=== PATIENT | male | born 1990 | race Caucasian/White ===

== ENCOUNTER → 2019-03-10 | Outpatient (CLI) | payer OTHER ==
--- NOTE | 2019-03-10 11:40 | XR ---
"EXAMINATION TYPE: XR elbow limited RT DATE OF EXAM: 03/10/2019 COMPARISON: NONE HISTORY: Pain FINDINGS: Two views of the elbow demonstrate displaced intra-articular fracture of the radial head with some de gree of depression. A pathologic joint effusion is noted. IMPRESSION: 1. There is a depressed and displaced intra-articular fracture of the radial head with pathologic kaveh nt effusion. A Yellow level critical message alert has been initiated for Meghan Dolan MD via the [employer] | Critical Results System on 03/10/2019 11:38 AM. This message alert has been sent to Meghan osborne MD via the preferences provided by the clinician for the receipt of Radiology Critical Findings. [facility] ID [id number]."
== END | disposition home or self-care (01) ==
LOC: RADMRIMAIN 11:06
PROVIDERS: ATTEND Internal Medicine
DX: S52.121A Displaced fracture of head of right radius, initial encounter for closed fracture (principal)

== ENCOUNTER 2021-01-23 19:00 | Emergency (ER) | payer OTHER ==
[2021-01-23 19:51] VITALS: BP 131/79; PULSE 82; RESP 18; TEMP 98.4
--- NOTE | 2021-01-23 20:22 | ED ---
Recheck HPI - General Chief Complaint: Recheck/Abnormal Lab/Rx Stated Complaint: Covid exposure, wants test Time Seen by Provider: 01/23/21 20:21 Source: patient, RN notes reviewed Mode of arrival: ambulatory Limitations: no limitations - History of Present Illness Initial Comments: This a 30-year-old male presents emergency Department chief complaint of wanting covid testing. Patient states that he was recently exposed was asymptomatic denies shortness of breath, of cough congestion bodyaches. Patient denies any other complaints. Patient is normal drug ALLERGIES. - Related Data Allergies Allergy/AdvReac Type Severity Reaction Status Date / Time No Known Allergies Allergy Verified 01/23/21 19:48 Review of Systems ROS Statement: Those systems with pertinent positive or pertinent negative responses have been documented in the HPI. ROS Other: All systems not noted in ROS Statement are negative. Past Medical History Past Medical History: No Reported History History of Any Multi-Drug Resistant Organisms: None Reported Past Surgical History: No Surgical Hx Reported Past Psychological History: No Psychological Hx Reported Smoking Status: Current every day smoker Past Alcohol Use History: Occasional Past Drug Use History: None Reported General Exam Limitations: no limitations General appearance: alert, in no apparent distress Head exam: Present: atraumatic, normocephalic, normal inspection Eye exam: Present: normal appearance, PERRL, EOMI. Absent: scleral icterus, conjunctival injection, periorbital swelling ENT exam: Present: normal exam Neck exam: Present: normal inspection, full ROM. Absent: tenderness, meningismus, lymphadenopathy Respiratory exam: Present: normal lung sounds bilaterally. Absent: respiratory distress, wheezes, rales, rhonchi, stridor Cardiovascular Exam: Present: regular rate, normal rhythm, normal heart sounds. Absent: systolic murmur, diastolic murmur, rubs, gallop, clicks Course Vital Signs 01/23/21 19:49 Temperature 98.4 F Pulse Rate 82 Respiratory 18 Rate Blood Pressure 131/79 O2 Sat by Pulse 97 Oximetry Medical Decision Making - Medical Decision Making Patient test is negative. Patient will be discharged in stable condition. - Lab Data Lab Results 01/23/21 Range/Units 19:52 Coronavirus (PCR) Not Detected (Not Detectd) Disposition Clinical Impression: Encounter for laboratory testing for COVID-19 virus Disposition: HOME SELF-CARE Condition: Stable Instructions (If sedation given, give patient instructions): Coronavirus Disease 2019 (COVID-19) Additional Instructions: Please return to the Emergency Department if symptoms worsen or any other concerns. Is patient prescribed a controlled substance at d/c from ED?: No Referrals: Meghan Dolan MD [Primary Care Provider] - 1-2 days Time of Disposition: 20:22
== END 2021-01-23 20:43 | disposition home or self-care (01) ==
LOC: EC 19:00
DX: Z11.52 Encounter for screening for COVID-19 (principal)
CPT/HCPCS: 87635; 99283

== ENCOUNTER 2021-02-08 22:40 | Emergency (ER) | payer OTHER ==
[2021-02-08 22:46] VITALS: RESP 18; TEMP 98.5
--- NOTE | 2021-02-09 00:10 | ED ---
Headache HPI - General Chief Complaint: Headache Stated Complaint: Headache Time Seen by Provider: 02/08/21 22:52 Mode of arrival: ambulatory Limitations: no limitations - History of Present Illness Initial Comments: 30-year-old male presents to emergency department with a chief complaint of headache. Patient does not have history of headaches but states this one has been ongoing for the past 5 days. Patient states the headache is located in the left parietal region and is localized without radiation. States the pain comes on and it is throbbing for about 2 seconds and then resolves. States this occurs about every half hour with no improvement. States he called his primary care physician who prescribed him Imitrex with improvement in symptoms. States he also taken Shelby and Motrin with no improvement in symptoms. Denies any photophobia, visual changes, nausea or vomiting. Denies any one-sided weakness or paresthesias. Denies any head injuries. Denies any fever or chills or neck stiffness. - Related Data Allergies Allergy/AdvReac Type Severity Reaction Status Date / Time No Known Allergies Allergy Verified 02/08/21 22:46 Review of Systems ROS Statement: Those systems with pertinent positive or pertinent negative responses have been documented in the HPI. ROS Other: All systems not noted in ROS Statement are negative. Past Medical History Past Medical History: No Reported History History of Any Multi-Drug Resistant Organisms: None Reported Past Surgical History: No Surgical Hx Reported Past Psychological History: No Psychological Hx Reported Smoking Status: Current every day smoker Past Alcohol Use History: Occasional Past Drug Use History: None Reported General Exam Limitations: no limitations General appearance: alert, in no apparent distress Head exam: Present: atraumatic, normocephalic, normal inspection Eye exam: Present: normal appearance, PERRL, EOMI Pupils: Present: normal accommodation ENT exam: Present: normal exam, normal oropharynx, mucous membranes moist, TM's normal bilaterally, normal external ear exam Neck exam: Present: normal inspection, full ROM. Absent: tenderness Respiratory exam: Present: normal lung sounds bilaterally. Absent: respiratory distress, wheezes, rales Cardiovascular Exam: Present: regular rate, normal rhythm, normal heart sounds. Absent: systolic murmur Extremities exam: Present: normal inspection, full ROM, normal capillary refill. Absent: tenderness, pedal edema, joint swelling Back exam: Present: normal inspection, full ROM. Absent: tenderness, CVA tenderness (R), CVA tenderness (L), muscle spasm Neurological exam: Present: alert, oriented X3 Psychiatric exam: Present: normal affect, normal mood Skin exam: Present: warm, dry, intact, normal color Course Vital Signs 02/08/21 22:42 Temperature 98.5 F Pulse Rate 81 Respiratory 18 Rate Blood Pressure 148/75 O2 Sat by Pulse 97 Oximetry Medical Decision Making - Medical Decision Making 30-year-old male presents to emergency department with chief complaint of a headache. Physical examination is unremarkable. No focal deficits. Vital signs within normal limits. He did not have any symptoms throughout ED stay. No medication was given. CT imaging of the head is unremarkable. Patient will follow up with his primary care physician. Return parameters were discussed with patient is icing and agreeable. Case discussed with Disposition Clinical Impression: Headache Disposition: HOME SELF-CARE Condition: Stable Instructions (If sedation given, give patient instructions): Acute Headache (ED) Additional Instructions: Please return to the Emergency Department if symptoms worsen or any other concerns. Is patient prescribed a controlled substance at d/c from ED?: No Referrals: Meghan Dolan MD [Primary Care Provider] - 1-2 days Time of Disposition: 00:26
--- NOTE | 2021-02-09 00:19 | CT ---
EXAMINATION TYPE: CT brain wo con DATE OF EXAM: 02/09/2021 COMPARISON: 04/30/2010 HISTORY: Sudden onset of sharp headache on and off x 5 days[address] prior on PACS [address] DLP: 1127.4 mGycm Automated exposure control for dose reduction was used. Ventricles have normal size. There is no mass effect nor midline shift. There is no sign of intracran ial hemorrhage. Calvarium is intact. There is no evidence of cerebral edema. The skull base is intact . There is normal aeration of the mastoid sinuses. Paranasal sinuses appear normal. IMPRESSION: Negative CT scan of the brain. No change.
[2021-02-09 00:39] VITALS: BP 138/93; PULSE 72
== END 2021-02-09 00:39 | disposition home or self-care (01) ==
LOC: EC 22:40
DX: R51.9 Headache, unspecified (principal); F17.200 Nicotine dependence, unspecified, uncomplicated
CPT/HCPCS: 70450; 99284

== ENCOUNTER 2021-11-27 18:56 | Emergency (ER) | payer OTHER ==
[2021-11-27 19:41] VITALS: TEMP 99.9
[2021-11-27] MEDS ORDERED: IBUPROFEN 600 MG TAB PO STA (20:10)
--- NOTE | 2021-11-27 20:15 | ED ---
General Adult HPI - General Chief complaint: Chest Pain Stated complaint: Chest pain Time Seen by Provider: 11/27/21 20:05 Source: patient, RN notes reviewed, old records reviewed Mode of arrival: wheelchair Limitations: no limitations - History of Present Illness Initial comments: 31-year-old well-appearing male presents to the emergency room with complaints of left-sided anterior chest pain. Patient states he has had pain for a week. Two weeks ago he did have a productive cough and viral type illness. He states he came into the emergency room because his heart rate was 110 at home. He denies any nausea vomiting or diarrhea. He states that he has been drinking water and does not feel dehydrated. -: week(s) (1) Location: chest (left anterior) Radiation: non-radiation Severity scale (1-10): 2 Quality: aching Consistency: intermittent Improves with: rest Associated Symptoms: cough Treatments Prior to Arrival: none - Related Data Previous Rx's Medication Instructions Recorded Ibuprofen [Motrin] 600 mg PO Q8HR PRN #30 tab 11/27/21 Allergies Allergy/AdvReac Type Severity Reaction Status Date / Time No Known Allergies Allergy Verified 11/27/21 20:59 Review of Systems ROS Statement: Those systems with pertinent positive or pertinent negative responses have been documented in the HPI. ROS Other: All systems not noted in ROS Statement are negative. Past Medical History Past Medical History: Asthma History of Any Multi-Drug Resistant Organisms: None Reported Past Surgical History: No Surgical Hx Reported Past Psychological History: No Psychological Hx Reported Smoking Status: Current every day smoker Past Alcohol Use History: Occasional Past Drug Use History: Marijuana General Exam Limitations: no limitations General appearance: alert, in no apparent distress Eye exam: Present: normal appearance ENT exam: Present: normal exam, normal oropharynx, mucous membranes moist Respiratory exam: Present: normal lung sounds bilaterally. Absent: respiratory distress, wheezes, rales, rhonchi, stridor, chest wall tenderness, decreased breath sounds Cardiovascular Exam: Present: regular rate, normal rhythm, normal heart sounds. Absent: systolic murmur, diastolic murmur, rubs, gallop, clicks, JVD GI/Abdominal exam: Present: soft. Absent: distended, tenderness Extremities exam: Present: normal capillary refill Back exam: Present: normal inspection, full ROM. Absent: tenderness, CVA tenderness (R), CVA tenderness (L), rash noted Neurological exam: Present: alert, oriented X3 Psychiatric exam: Present: normal affect, normal mood Skin exam: Present: warm, dry, intact, normal color. Absent: rash, cyanosis, diaphoretic Course Vital Signs 11/27/21 11/27/21 19:38 20:40 Temperature 99.9 F H Pulse Rate 94 92 Respiratory 20 16 Rate Blood Pressure 129/79 115/85 O2 Sat by Pulse 99 95 Oximetry EKG Findings - EKG Results: EKG: sinus rhythm (Ventricular rate of 82, SD interval 0.136, QRS 0.92, QTC 0.379) Medical Decision Making - Medical Decision Making 31-year-old male presents with left anterior chest pain for one week. Patient states he did have a productive cough for 2 weeks which has resolved. He denies shortness of breath, fevers or chills. Pain is not changed with position. Vital signs are stable. Lungs sounds are clear to auscultation. Chest x-ray shows no acute cardiopulmonary process no evidence of pleural effusion or infiltrate. Coronavirus swab is negative. EKG shows sinus rhythm with no ectopy. This is likely costochondritis after viral illness. Patient will be prescribed Motrin and directed to follow up with his primary care doctor this week. Directed to return to the emergency room with any new or worsening symptoms. Case discussed with Dr. Chavez. - Lab Data Lab Results 11/27/21 Range/Units 20:30 Coronavirus (PCR) Not Detected (Not Detectd) Disposition Clinical Impression: Chest wall pain Disposition: HOME SELF-CARE Condition: Good Instructions (If sedation given, give patient instructions): Chest Pain (ED), Costochondritis (ED) Additional Instructions: Return to the emergency room with any new or worsening symptoms including increased chest pain or difficulty in breathing. Follow-up with your primary care doctor this week. Take the Motrin as prescribed and increase your fluid intake. Prescriptions: Ibuprofen [Motrin] 600 mg PO Q8HR PRN #30 tab PRN Reason: Pain Is patient prescribed a controlled substance at d/c from ED?: No Referrals: Meghan Dolan MD [Primary Care Provider] - 1-2 days Time of Disposition: 21:14
--- NOTE | 2021-11-27 20:28 | XR ---
EXAMINATION TYPE: XR chest 2V DATE OF EXAM: 11/27/2021 COMPARISON: NONE HISTORY: Cough TECHNIQUE: Frontal and lateral views of the chest are obtained. FINDINGS: There is no focal air space opacity, pleural effusion, or pneumothorax seen. The cardiac silhouette size is within normal limits. The osseous structures are intact. IMPRESSION: No acute cardiopulmonary process.
[2021-11-27 20:42] VITALS: RESP 16
[2021-11-27 22:04] VITALS: BP 117/71; PULSE 87
== END 2021-11-27 22:03 | disposition home or self-care (01) ==
LOC: EC 18:56
DX: R07.89 Other chest pain (principal); Z20.822 Contact with and (suspected) exposure to COVID-19; J45.909 Unspecified asthma, uncomplicated; F17.200 Nicotine dependence, unspecified, uncomplicated; F12.90 Cannabis use, unspecified, uncomplicated
CPT/HCPCS: 71046; 87635; 93005; 99285

== ENCOUNTER → 2021-12-18 | Outpatient (CLI) | payer OTHER ==
--- NOTE | 2021-12-18 09:44 | CT ---
EXAMINATION TYPE: High-resolution CT chest DATE OF EXAM: 12/18/2021 COMPARISON: Radiographs 11/27/2021 HISTORY: 31-year-old male R06.02, Cough with shortness of breath TECHNIQUE: High-resolution CT scanning of the chest without IV contrast utilizing 1 mm slice thicknes s and 1 cm gap per HRCT protocol. Both prone and supine imaging was utilized. CT DLP: 156 mGycm Automated exposure control for dose reduction was used. FINDINGS: Heart normal size without pericardial effusion. Aorta normal caliber with conventional arch vessel branching anatomy. No thoracic lymphadenopathy by HRCT technique. There is mild to moderate diffuse bronchial wall thickening. No honeycombing, dominant groundglass, t ree-in-bud opacities, bronchiectasis, microcystic change, perilymphatic nodularity, or centrilobular nodules. Central airways are clear. No consolidation or pleural effusion. Visualized upper abdomen shows no gross abnormality. Bones: No osseous destructive process by HRCT technique. IMPRESSION: 1. [id number] DIFFUSE BRONCHIAL WALL THICKENING. CORRELATE FOR BRONCHITIS OR CHRONIC ASTHMA. 2. NO SPECIFIC HRCT FINDINGS OF INTERSTITIAL LUNG DISEASE.
== END | disposition home or self-care (01) ==
LOC: RADCTMAIN 07:48
PROVIDERS: ATTEND Internal Medicine
DX: J98.09 Other diseases of bronchus, not elsewhere classified (principal)
CPT/HCPCS: 71250

== ENCOUNTER 2022-06-10 01:37 | Emergency (ER) | payer OTHER ==
[2022-06-10 01:47] VITALS: TEMP 97.9
[2022-06-10] MEDS ORDERED: diphenhydrAMINE 50 MG/ML 1 ML VIAL IVP STA (03:27)
[2022-06-10] MEDS ORDERED: SODIUM CHLORIDE 0.9% 1,000 ML IV STA (03:27)
[2022-06-10] MEDS ORDERED: ONDANSETRON 4 MG/2 ML VIAL IVP STA (03:27)
[2022-06-10] MEDS ORDERED: MORPHINE SULFATE 4 MG/ML SYRINGE IV STA (03:27)
--- NOTE | 2022-06-10 03:58 | ED ---
General Adult HPI - General Chief complaint: Abdominal Pain Stated complaint: Abdominal pain Time Seen by Provider: 06/10/22 03:15 Source: patient, RN notes reviewed, old records reviewed Mode of arrival: ambulatory Limitations: no limitations - History of Present Illness Initial comments: Patient is a 31-year-old male with past medical history remarkable for chronic abdominal pain presents emergency Department 1 week worsening of his chronic abdominal pain. States is located in epigastric region, however seems to be radiating towards his left upper quadrant as well. Denies nausea or vomiting currently but states he occasionally feels nauseous. No episodes of emesis. Denies diarrhea. Denies chest pain or shortness of breath. States he fells up with the detective investigator was told to come to the emergency department if his pain got worse. Unknown diagnosis. He is concerned might be his pancreas. He denies any alcohol use. Denies drug use. Denies fevers, chills, cough, sick contacts. Denies any shortness of breath. Has no other acute complaints at this time. - Related Data Previous Rx's Medication Instructions Recorded Ibuprofen [Motrin] 600 mg PO Q8HR PRN #30 tab 11/27/21 Famotidine [Pepcid] 20 mg PO DAILY 14 Days #14 tablet 06/10/22 Allergies Allergy/AdvReac Type Severity Reaction Status Date / Time No Known Allergies Allergy Verified 11/27/21 20:59 Review of Systems ROS Statement: Those systems with pertinent positive or pertinent negative responses have been documented in the HPI. Review of Systems: CONST: Denies fever EYES: Denies blurry vision ENT: Denies nasal congestion C/V: Denies Chest pain RESP: Denies shortness of breath GI: Endorses abdominal pain : Denies dysuria SKIN: Denies rash. MSK: Denies joint pain. NEURO: Denies headache ROS Other: All systems not noted in ROS Statement are negative. Past Medical History Past Medical History: Asthma History of Any Multi-Drug Resistant Organisms: None Reported Past Surgical History: No Surgical Hx Reported Past Psychological History: No Psychological Hx Reported Smoking Status: Current every day smoker Past Alcohol Use History: Occasional Past Drug Use History: Marijuana General Exam - General Exam Comments Initial Comments: General: Appears in no acute distress. HEAD: Normal with no signs of head trauma. EYES: PERRLA, EOMI, conjunctiva normal, no discharge. ENT: Hearing grossly intact, normal oropharynx. RESPIRATORY: Clear breath sounds bilaterally. No wheezes, rales, or rhonchi. C/V: Regular rate and rhythm. S1 and S2 auscultated, no edema, peripheral pulses 2+ and intact throughout ABD: Abdomen soft, nondistended. Tender to palpation epigastric and left upper quadrant region. No guarding. No rebound tenderness. No peritoneal signs. EXT: Normal range of motion, no obvious deformity SKIN: No rashes or lesions observed on exposed skin. NEURO: Alert and oriented 4. Limitations: no limitations Course Vital Signs 06/10/22 01:40 Temperature 97.9 F Pulse Rate 66 Respiratory 16 Rate Blood Pressure 141/79 O2 Sat by Pulse 100 Oximetry Medical Decision Making - Medical Decision Making Based on the patient's presentation and physical exam, I'm concerned for acute worsening of his chronic abdominal pain. We will obtain abdominal laboratory studies. His no received CT imaging of his abdomen and we'll obtain as well. He will be given IV analgesia medications. He was in agreement this plan.Vital signs are within normal limits. Patient's laboratory studies are within normal limits. CT abdomen and pelvis reveals bilateral nonobstructing renal calculi. No other acute findings. On reevaluation, patient is feeling improved. I did discuss with him his negative workup. I do believe it is safe for him to be discharged home at this time. He will be given a prescription for famotidine. He is instructed to follow-up with his PCP, detective investigator. He was in agreement agreement with this plan. I will provide the patient with a prescription for famotidine. I instructed the patient to follow up with their PCP in the next 1-3 days. I explained that the patient should return to the emergency department if they experience any worsening symptoms. Strict return precautions were discussed with the patient. The patient expressed understanding of these instructions. I answered all questions that the patient had. The patient was discharged home in good condition with their prescriptions and follow up information. - Lab Data Result diagrams: 06/10/22 03:59 06/10/22 03:59 Lab Results 06/10/22 06/10/22 06/10/22 Range/Units 03:59 03:59 03:59 WBC 7.5 (3.8-10.6) k/uL RBC 4.65 (4.30-5.90) m/uL Hgb 14.6 (13.0-17.5) gm/dL Hct 44.1 (39.0-53.0) % MCV 94.9 (80.0-100.0) fL MCH 31.3 (25.0-35.0) pg MCHC 33.0 (31.0-37.0) g/dL RDW 13.4 (11.5-15.5) % Plt Count 238 (150-450) k/uL MPV 6.8 Neutrophils % 63 % Lymphocytes % 26 % Monocytes % 7 % Eosinophils % 2 % Basophils % 1 % Neutrophils # 4.7 (1.3-7.7) k/uL Lymphocytes # 1.9 (1.0-4.8) k/uL Monocytes # 0.5 (0-1.0) k/uL Eosinophils # 0.1 (0-0.7) k/uL Basophils # 0.1 (0-0.2) k/uL PT 10.7 (9.0-12.0) sec INR 1.0 (<1.2) APTT 26.9 (22.0-30.0) sec Sodium 137 (137-145) mmol/L Potassium 3.8 (3.5-5.1) mmol/L Chloride 106 (98-107) mmol/L Carbon Dioxide 21 L (22-30) mmol/L Anion Gap 10 mmol/L BUN 14 (9-20) mg/dL Creatinine 0.82 (0.66-1.25) mg/dL Est GFR (CKD-EPI)AfAm >90 (>60 ml/min/1.73 sqM) Est GFR (CKD-EPI)NonAf >90 (>60 ml/min/1.73 sqM) Glucose 104 H (74-99) mg/dL Calcium 9.4 (8.4-10.2) mg/dL Total Bilirubin 0.3 (0.2-1.3) mg/dL AST 23 (17-59) U/L ALT 16 (4-49) U/L Alkaline Phosphatase 87 (38-126) U/L Total Protein 6.6 (6.3-8.2) g/dL Albumin 4.3 (3.5-5.0) g/dL Amylase 71 (30-110) U/L Lipase 33 (23-300) U/L Disposition Clinical Impression: Chronic abdominal pain Disposition: HOME SELF-CARE Condition: Good Prescriptions: Famotidine [Pepcid] 20 mg PO DAILY 14 Days #14 tablet Is patient prescribed a controlled substance at d/c from ED?: No Referrals: Meghan Dolan MD [Primary Care Provider] - 1-2 days Time of Disposition: 05:00
[2022-06-10 04:11] LABS: Basophils # (A) 0.1 k/uL (0-0.2); Basophils % (A) 1 %; Eosinophils # (A) 0.1 k/uL (0-0.7); Eosinophils % (A) 2 %; HCT 44.1 % (39.0-53.0); HGB 14.6 gm/dL (13.0-17.5); Lymphocytes # (A) 1.9 k/uL (1.0-4.8); Lymphocytes % (A) 26 %; MCH 31.3 pg (25.0-35.0); MCV 94.9 fL (80.0-100.0); Mean Platelet Volume 6.8; Monocytes # (A) 0.5 k/uL (0-1.0); Monocytes % (A) 7 %; Neutrophils # (A) 4.7 k/uL (1.3-7.7); Neutrophils % (A) 63 %; Platelet Count 238 k/uL (150-450); RBC 4.65 m/uL (4.30-5.90); RDW 13.4 % (11.5-15.5); WBC 7.5 k/uL (3.8-10.6)
[2022-06-10 04:14] LABS: ALT 16 U/L (4-49); AST 23 U/L (17-59); African American GFR (CKD) >90 (>60 ml/min/1.73 sqM); Albumin 4.3 g/dL (3.5-5.0); Alkaline Phosphatase 87 U/L (38-126); Amylase 71 U/L (30-110); Anion Gap 10 mmol/L; Blood Urea Nitrogen 14 mg/dL (9-20); Calcium 9.4 mg/dL (8.4-10.2); Carbon Dioxide 21 mmol/L (22-30); Chloride 106 mmol/L (98-107); Glucose 104 mg/dL (74-99); Lipase 33 U/L (23-300); Non-African American GFR(CKD) >90 (>60 ml/min/1.73 sqM); Potassium 3.8 mmol/L (3.5-5.1); Sodium 137 mmol/L (137-145); Total Bilirubin 0.3 mg/dL (0.2-1.3); Total Protein 6.6 g/dL (6.3-8.2)
[2022-06-10 04:17] LABS: Partial Thromboplastin Time 26.9 sec (22.0-30.0); Prothrombin Time 10.7 sec (9.0-12.0)
--- NOTE | 2022-06-10 04:56 | CT ---
EXAMINATION TYPE: CT abdomen pelvis w con DATE OF EXAM: 06/10/2022 COMPARISON: None HISTORY: ULQ PAIN FOR [address] WORSE [address] DLP: 636.1 mGycm Automated exposure control for dose reduction was used. CONTRAST: Performed with IV Contrast, patient injected with 100ml mL of Isovue 300. Images obtained from the diaphragm to the floor of the pelvis with IV contrast. FINDINGS: Lung bases are clear. No pleural effusion. Heart size is normal. No pericardial effusion. Liver spleen pancreas gallbladder appear intact. The bile ducts are not dilated. Stomach has normal size and contour. No adrenal mass. Kidneys show satisfactory contrast opacificatio n. There is no hydronephrosis. The bladder distends smoothly. No inguinal hernia. No free fluid in th e pelvis. No pelvic mass. There is a 4 mm calculus interpolar left kidney. There is 3 mm calculus int erpolar right kidney. There is no mesenteric edema. No ascites or free air. No sign of a bowel obstruction. Appendix appear s normal. No intestinal wall thickening. The lumbar vertebrae have normal alignment. Posterior elements are intact. No compression fracture. F acet joints are intact. The bony pelvis is intact. Hip joints appear normal. IMPRESSION: Bilateral nonobstructing renal calculi. Normal appendix. No acute abnormality of the abdomen and pelv is.
[2022-06-10 05:28] VITALS: BP 128/80; PULSE 60; RESP 18
== END 2022-06-10 05:27 | disposition home or self-care (01) ==
LOC: EC 01:37
DX: R10.84 Generalized abdominal pain (principal); G89.29 Other chronic pain; R10.11 Right upper quadrant pain; J45.909 Unspecified asthma, uncomplicated; F12.90 Cannabis use, unspecified, uncomplicated; F17.200 Nicotine dependence, unspecified, uncomplicated
CPT/HCPCS: 99284; 96374; 96375 ×3; 96361 ×2; 36415; 80053; 82150; 83690; 85025; 85610; 85730; 74177; J2270; J1200; J2405; Q9967

== ENCOUNTER 2022-07-06 06:59 | Day surgery (SDC) | payer OTHER ==
[2022-07-04 11:24] VITALS: BMI 22.7
[2022-07-06] MEDS: LACTATED RINGERS 1,000 ML IV SCH ×2 (07:10→07:51)
[2022-07-06 07:13] VITALS: TEMP 96.9
[2022-07-06] MEDS ORDERED: MIDAZOLAM 2 MG/2 ML VIAL ONE (07:52)
[2022-07-06] MEDS ORDERED: PROPOFOL 10 MG/ML 20 ML VIAL IV ONE (07:52)
[2022-07-06] MEDS ORDERED: LIDOCAINE 2% INJ 20 MG/ML (2 ML VIAL) ONE (07:52)
[2022-07-06] MEDS ORDERED: fentaNYL (PF) 50 MCG/ML 2 ML AMP ONE (07:52)
--- NOTE | 2022-07-06 08:12 | P.PCN ---
Date of Procedure: 07/06/22 Procedure(s) Performed: Brief history: Patient is a pleasant 31-year-old white male scheduled for an elective upper endoscopy as well as colonoscopy as a part of evaluation of chronic left sided abdominal pain for the last 7-8 months duration. He denies any nausea vomiting. He does complain of some change in bowel habits with occasional constipation but no rectal bleeding. He was treated with amitriptyline as well as dicyclomine with no help. Procedure performed: Esophagogastroduodenoscopy with biopsy Colonoscopy Preoperative diagnosis: Chronic left sided abdominal pain/change in bowel habits. Anesthesia: MAC Procedure: After informed consent was obtained from the patient was brought into the endoscopy unit and IV sedation was administered by anesthesia under continuous monitoring. Initially upper endoscopy was done. The Olympus GF 160 video endoscope was inserted inserted into the mouth and esophagus intubated without any difficulty and was gradually advanced into the stomach and duodenum and carefully examined. The bulb and second part of the duodenum appeared normal. Biopsies were done from the duodenum to rule out celiac disease The scope was then withdrawn into the stomach adequately insufflated with air and upon careful examination the antrum had mild mottling of the mucosa which was biopsied. Mucosa of the body, cardia and fundus appeared normal. The scope was then withdrawn into the esophagus. The GE junction was located at 40 cm to the incisors. It appeared regular with mild erythema consistent with LA grade a reflux esophagitis.. Rest of the esophagus appeared normal. Patient tolerated the procedure well. At this time the patient continued to remain sedation. Initial digital rectal examination was normal. Olympus CF 160 video colonoscope was then inserted into the rectum and gradually advanced to the cecum without any difficulty. Careful examination was performed as the scope was gradually being withdrawn. The prep was excellent. Terminal ileum was intubated and approximately 20 cm visualized and appeared normal. The cecum, ascending colon, transverse colon, descending colon, sigmoid colon and rectum appeared normal. Retroflexion was performed in the rectum and no lesions were noted. Patient tolerated the procedure well. Impression: 1. Upper endoscopy revealed minimal antral gastritis and LA grade a reflux esophagitis 2. Colonoscopy was within normal limits with no evidence of colitis or colorectal Recommendations: Findings of this examination were discussed with the patient as well as his family. He was advised to follow with the biopsy results and he'll be seen in office in 3-4 weeks
[2022-07-06 08:34] VITALS: BP 144/85; PULSE 52; RESP 16
== END 2022-07-06 08:50 | disposition home or self-care (01) ==
LOC: ORWHC2ENDO 06:59
PROVIDERS: ATTEND Internal Medicine Gastroenterology
DX: K29.50 Unspecified chronic gastritis without bleeding (principal); K20.80 Other esophagitis without bleeding; J45.909 Unspecified asthma, uncomplicated; F12.90 Cannabis use, unspecified, uncomplicated; Z79.899 Other long term (current) drug therapy
CPT/HCPCS: 43239; 45378; 88305; J2250; J3010; J2704; J2001; 45380